=== PATIENT | female | born 1975 | race African-American/Black ===

== ENCOUNTER 2020-01-18 14:58 | Emergency (ER) | payer OTHER ==
[~2020-01-18] VITALS: Ht 162.6 cm; Wt 76.7 kg
[2020-01-18 15:47] LABS: ABSOLUTE NEUTROPHILS 1.9 thou/uL (1.4-8.2); BASOPHILS 1.2 % (0.0-2.0); EOSINOPHILS 2.3 % (0.0-3.0); HEMATOCRIT 40.7 % (37.0-47.0); HEMOGLOBIN 13.4 gm/dL (12.0-15.0); LYMPHOCYTES 47.9 % (24.0-44.0); MCH 27.9 pg (26.0-34.0); MCV 84.3 fL (80.0-100.0); MONOCYTES 10.4 % (1.0-8.0); PLATELET COUNT 275 thou/uL (150-400); POLYS 38.2 % (36.0-66.0); RBC 4.82 mil/uL (4.20-5.00); RDW 13.8 % (10.5-14.5)
[2020-01-18 15:54] LABS: ANION GAP 6 mmol/L (7-16); BUN 8 mg/dL (7-18); CALCIUM 9.5 mg/dL (8.5-10.1); CHLORIDE 104 mmol/L (98-107); CO2 29 mmol/L (21-32); CREATININE 1.1 mg/dL (0.6-1.0); GLUCOSE 90 mg/dL (74-106); POTASSIUM 3.8 mmol/L (3.5-5.1); SODIUM 139 mmol/L (136-145)
[2020-01-18 16:04] LABS: ALBUMIN 3.9 g/dL (3.4-5.0); SGOT 18 U/L (15-37); SGPT 27 U/L (30-65); TOTAL BILIRUBIN 0.3 mg/dL (0.2-1.0); TOTAL PROTEIN 7.8 g/dL (6.4-8.2); TROPONIN-I <0.06 ng/mL (<0.06)
--- NOTE | 2020-01-18 17:58 | EKG ---
[facility] [place] [address] ELECTROCARDIOGRAM REPORT Name: BETSY MICHELE Room #: [facility]#: [id number] Admission: 01/18/20 Attend Phys: Discharge: Date of : 79 Report #: [id number] THIS REPORT FOR: cc: Darlyn Weston MD, Michael D. MD Lundgren,Phil Dias MD [facility] ~ THIS REPORT FOR: //name// [facility] ED Test Date: 2020-01-18 Test Time: 16:11:54 Pat Name: BETSY MICHELE Department: Room: Gender: F Chaplain Resident: REN JIMYHENRY : 1975 Requested By: Moriah Calixto Order Number: [id number] MD: Phil Meza Measurements Intervals Freedom Rate: 72 P: 69 DC: 152 QRS: 53 QRSD: 92 T: 86 QT: 342 QTc: 375 Interpretive Statements Sinus rhythm Nonspecific ST and T wave abnormality No previous ECG available for comparison Electronically Signed On 01-18-2020 17:58:13 [employer]BER [employer] by Phil Meza [email or web address] <ELECTRONICALLY SIGNED> By: Phil Meza MD, FAC 01/18/20 1758 161 161 Phil Meza MD, FAC /EPI
[2020-01-18] MEDS ORDERED: ZPAK PO (18:29)
[2020-01-18] MEDS ORDERED: PREDNISONE 20 M20 M1 PO (18:29)
[2020-01-18 18:40] VITALS: BP 123/77
== END 2020-01-18 18:40 | disposition home or self-care (01) ==
LOC: ER 14:58
PROVIDERS: Student in an Organized Health Care Education/Training Program
DX: J18.9 Pneumonia, unspecified organism (principal); E10.9 Type 1 diabetes mellitus without complications

== ENCOUNTER → 2020-01-30 | Outpatient (CLI) | payer OTHER ==
[~2020-01-30] MED LIST: PREDNISONE 20 M20 M1 PO; ZPAK PO
[2020-01-30 08:59] LABS: ABSOLUTE NEUTROPHILS 2.2 thou/uL (1.4-8.2); BASOPHILS 1.3 % (0.0-2.0); EOSINOPHILS 2.6 % (0.0-3.0); HEMATOCRIT 38.2 % (37.0-47.0); HEMOGLOBIN 12.5 gm/dL (12.0-15.0); LYMPHOCYTES 37.8 % (24.0-44.0); MCH 27.8 pg (26.0-34.0); MCHC 32.7 g/dL (28.0-37.0); MCV 84.9 fL (80.0-100.0); MONOCYTES 11.6 % (1.0-8.0); PLATELET COUNT 282 thou/uL (150-400); POLYS 46.7 % (36.0-66.0); RDW 14.1 % (10.5-14.5); WBC 4.8 thou/uL (4.0-11.0)
[2020-01-30 09:09] LABS: ALBUMIN 3.9 g/dL (3.4-5.0); ANION GAP 10 mmol/L (7-16); BUN 12 mg/dL (7-18); CALCIUM 8.5 mg/dL (8.5-10.1); CHLORIDE 102 mmol/L (98-107); CHOLESTEROL 185 mg/dL (<200); CO2 28 mmol/L (21-32); GLUCOSE 148 mg/dL (74-106); HDL CHOLESTEROL 80 mg/dL (>40); LDL CHOLESTEROL 97 mg/dL (<100); POTASSIUM 3.6 mmol/L (3.5-5.1); SGOT 18 U/L (15-37); SGPT 26 U/L (30-65); SODIUM 140 mmol/L (136-145); TC:HDL 2.3 Ratio (Not establshd); TOTAL BILIRUBIN 0.5 mg/dL (0.2-1.0); TOTAL PROTEIN 7.5 g/dL (6.4-8.2); TRIGLYCERIDE 40 mg/dL (<150); VLDL 8 mg/dL (<40)
[2020-01-31 01:06] LABS: GLYCOHEMOGLOBIN (HGB A1C) 7.8 % (4.8-5.6)
== END ==
LOC: RAD 08:18
PROVIDERS: ATTEND Nurse Practitioner
DX: Z86.19 Personal history of other infectious and parasitic diseases (principal)

== ENCOUNTER → 2020-06-18 | Outpatient (CLI) | payer OTHER ==
[2020-06-18 11:36] LABS: ABSOLUTE NEUTROPHILS 2.1 thou/uL (1.4-8.2); BASOPHILS 1.5 % (0.0-2.0); EOSINOPHILS 2.4 % (0.0-3.0); HEMATOCRIT 40.4 % (37.0-47.0); HEMOGLOBIN 13.2 gm/dL (12.0-15.0); LYMPHOCYTES 44.7 % (24.0-44.0); MCH 27.9 pg (26.0-34.0); MCHC 32.7 g/dL (28.0-37.0); MCV 85.5 fL (80.0-100.0); PLATELET COUNT 266 thou/uL (150-400); POLYS 44.4 % (36.0-66.0); RBC 4.73 mil/uL (4.20-5.00); RDW 14.4 % (10.5-14.5); WBC 4.7 thou/uL (4.0-11.0)
[2020-06-18 11:52] LABS: ALBUMIN 3.8 g/dL (3.4-5.0); CALCIUM 8.6 mg/dL (8.5-10.1); POTASSIUM 4.1 mmol/L (3.5-5.1); TOTAL BILIRUBIN 0.4 mg/dL (0.2-1.0); TOTAL PROTEIN 7.7 g/dL (6.4-8.2)
== END ==
LOC: LAB 10:54
PROVIDERS: ATTEND Nurse Practitioner
DX: E55.9 Vitamin D deficiency, unspecified (principal); J40 Bronchitis, not specified as acute or chronic; R53.82 Chronic fatigue, unspecified; R35.0 Frequency of micturition

== ENCOUNTER → 2020-07-05 | Outpatient (CLI) | payer OTHER | LOC: RAD 08:29 | PROVIDERS: ATTEND Internal Medicine | DX: R06.00 Dyspnea, unspecified (principal) ==

== ENCOUNTER → 2020-09-19 | Outpatient (CLI) | payer OTHER | LOC: RAD 16:35 | PROVIDERS: ATTEND Nurse Practitioner | DX: M54.12 Radiculopathy, cervical region (principal) ==

== ENCOUNTER → 2020-10-17 | Outpatient (CLI) | payer OTHER | LOC: MRI 09:23 | PROVIDERS: ATTEND Nurse Practitioner | DX: M50.123 Cervical disc disorder at C6-C7 level with radiculopathy (principal); M41.82 Other forms of scoliosis, cervical region; M48.02 Spinal stenosis, cervical region; R29.898 Other symptoms and signs involving the musculoskeletal system ==

== ENCOUNTER → 2021-04-30 | Outpatient (CLI) | payer OTHER | LOC: RAD 16:31 | PROVIDERS: ATTEND Nurse Practitioner | DX: M25.512 Pain in left shoulder (principal); R07.89 Other chest pain ==